=== PATIENT | male | born 2005 | race Caucasian/White ===

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

== ENCOUNTER 2024-12-13 13:03 | Emergency (ER) | payer MEDICAID ==
[~2024-12-13] VITALS: Ht 172.7 cm; Wt 61.2 kg
[2024-12-13] MEDS ORDERED: DOXY100C5 PO (14:25)
[2024-12-13] MEDS ORDERED: CEFTRIAXONE 500 MG VIAL ONE (14:40)
[2024-12-13] MEDS ORDERED: DOXYCYCLINE HYCLATE 100 MG TABLET ONE (14:40)
[2024-12-13] MEDS ORDERED: LIDOCAINE HCL 1% 20 ML VIAL ONE (14:41)
[2024-12-13] MEDS: DOXYCYCLINE HYCLATE 100 MG TABLET PO ONE (14:49)
[2024-12-13] MEDS: CEFTRIAXONE 500 MG VIAL IM ONE (14:49)
[2024-12-13 15:27] VITALS: BP 125/68; TEMP 208; O2SAT 96
[2024-12-13 15:56] LABS: *BILIRUBIN,URIN NEGATIVE (NEGATIVE); *CLARITY,URINE CLEAR (CLEAR); *COLOR,URINE YELLOW (YELLOW); *KETONES,URINE NEGATIVE (NEGATIVE); *PROTEIN,URINE NEGATIVE (NEGATIVE); *UROBILINOGEN,URINE 0.2 E.U./dl (NORMAL); LEUKOCYTE ESTERASE ,URINE NEGATIVE (NEGATIVE); NITRITE, URINE NEGATIVE (NEGATIVE); UGLUCOSE NEGATIVE (NEGATIVE)
[2024-12-13 15:58] LABS: *BLOOD, URINE TRACE (NEGATIVE)
[2024-12-13 16:08] LABS: SQUAMOUS EPITHELIAL CELL,UR FEW /HPF (NONE SEEN)
[2024-12-13 16:23] LABS: HIV-1/2 ANTIBODY NON REACTIVE (NONREACTIVE)
[2024-12-14 11:07] LABS: *CHLAMYDIA NAA Negative (Negative); *GC NAA Negative (Negative); *TRIC.VAG. NAA Negative (Negative)
== END 2024-12-13 15:28 | disposition home or self-care (01) ==
LOC: ER 13:03
DX: R30.0 Dysuria (principal)
CPT/HCPCS: 99283; 86592; 81001; 87806; 87086; 36415; 96372; 86803; 87491; J0696; J3490; A4606; A4663